=== PATIENT | female | born 1955 | race Caucasian/White ===

== ENCOUNTER 2018-10-07 09:50 | Day surgery (SDC) | payer OTHER ==
[2018-10-07] MEDS ORDERED: PROPOFOL 40 ML (11:18)
[2018-10-07] MEDS ORDERED: FENTAnyl 50 MCG/ML VIAL (11:18)
[2018-10-07] MEDS ORDERED: LIDOCAINE 2% (SDV) 5 ML INJ (11:18)
== END 2018-10-07 14:52 | disposition home or self-care (01) ==
LOC: GIL 09:50
DX: Z12.11 Encounter for screening for malignant neoplasm of colon (principal); K64.8 Other hemorrhoids; D12.5 Benign neoplasm of sigmoid colon; K21.0 Gastro-esophageal reflux disease with esophagitis; I10 Essential (primary) hypertension; E11.9 Type 2 diabetes mellitus without complications; J44.9 Chronic obstructive pulmonary disease, unspecified; Z87.891 Personal history of nicotine dependence
CPT/HCPCS: 43239; 82962; 88305; 88312